=== PATIENT | female | born 1985 | race Caucasian/White ===

== ENCOUNTER 2019-03-18 10:12 | Day surgery (SDC) | payer BC ==
[2019-03-18] MEDS ORDERED: METOCLOPRAMIDE 10 MG INJ IV (11:30)
[2019-03-18] MEDS ORDERED: HYDROmorphONE 1 MG/5 ML IV SYRINGE IV ×2 (11:30)
[2019-03-18] MEDS ORDERED: EPHEDrine 25 MG/5 ML SYG IV (11:30)
[2019-03-18] MEDS ORDERED: OXYCODONE/ACETAMINOPHEN (5/325) TAB PO (11:30)
[2019-03-18] MEDS ORDERED: FENTAnyl 50 MCG/ML VIAL IV (11:30)
[2019-03-18] MEDS: LACTATED RINGER'S 1,000 ML IV (11:42)
[2019-03-18] MEDS ORDERED: BUPIVACAINE 0.5% (SDV) 30 ML INJ (12:33)
[2019-03-18] MEDS ORDERED: FENTAnyl 50 MCG/ML VIAL ×2 (12:59→13:12)
[2019-03-18] MEDS ORDERED: MIDAZOLAM 1 MG/ML 2 ML INJ (12:59)
[2019-03-18] MEDS ORDERED: PROPOFOL 20 ML (12:59)
[2019-03-18] MEDS ORDERED: CEFAZOLIN 1 GM INJ ×2 (12:59→13:11)
[2019-03-18] MEDS ORDERED: ROPIVACAINE 0.2% 20 ML VIAL (13:03)
[2019-03-18] MEDS ORDERED: ONDANSETRON 4 MG INJ ×2 (13:11→13:45)
[2019-03-18] MEDS ORDERED: DEXAMETHASONE 4 MG/ML 5 ML INJ (13:11)
[2019-03-18] MEDS ORDERED: METOCLOPRAMIDE 10 MG INJ (13:11)
[2019-03-18] MEDS ORDERED: KETOROLAC 30 MG INJ (13:11)
[2019-03-18] MEDS: POVIDONE IODINE 10% 28.4 GM OINT (13:37)
[2019-03-18] MEDS: FENTAnyl 50 MCG/ML VIAL IV (14:05)
[2019-03-18] MEDS: ONDANSETRON 4 MG INJ IV ×2 (14:06→15:23)
[2019-03-18] MEDS: ACETAMINOPHEN 500 MG TAB PO (16:01)
== END 2019-03-18 16:30 | disposition home or self-care (01) ==
LOC: SDS 10:12
DX: M67.471 Ganglion, right ankle and foot (principal)
CPT/HCPCS: 28090; 84703; 88304